=== PATIENT | male | born 1950 | race Caucasian/White ===

== ENCOUNTER → 2023-04-02 13:05 | Outpatient (BNVA) | payer MEDICARE, SELFPAY | PROVIDERS: Visit Provider Physician Assistant | DX: M48.061 Spinal stenosis, lumbar region without neurogenic claudication (principal) | CPT/HCPCS: 99202 ==

== ENCOUNTER 2023-05-27 05:56 | Day surgery (SDC) | payer MEDICARE, SELFPAY ==
[2023-05-14 12:13] VITALS: BP 132/77; PULSE 52; RESP 16; O2SAT 97; BMI 28.2
--- NOTE | 2023-05-14 12:40 | HO.ANESPROP2 ---
Documented by User: Katie Ribeiro NP 05/26/23 11:54 HPI - Anesthesia Eval Consult details Narrative: 72yo M for Right L5-S1 Micro Lumbar discectomy, 05/27/23 No recent illness NO CP/SOB with yard work CAD w/ ME/stent in 2001. Routine cardiac f/u since. Last seen 09/2022. Stable, high METS. PMFSH Active Problems Active Problems: All Active Problems (Updated 05/14/23 @ 12:07 by Fide Longo RN) Lumbar stenosis (Acute) Past Medical History Medical History (Updated 05/14/23 @ 12:07 by Fide Longo RN) Amputated finger Arthritis Benign cardiac murmur Coronary arteriosclerosis Degenerative disorder of eye Eczema Hyperlipidemia Numbness On beta rob at home Personal history of other (healed) physical injury and trauma Family History Family history of problems with anesthesia: No Surgical History Surgical History (Updated 05/14/23 @ 12:37 by Fide Longo RN) H/O colonoscopy History of vasectomy Hx of heart artery stent Hx of inguinal hernia repair S/P arthroscopic surgery of left knee History of Problems with Anesthesia: No Social History Social History Are you a primary home care physical therapist to a significant other at home: No Do you presently have visiting nurse or other home services: No Patient Tobacco Use Status: Never used Tobacco Use of substances other than those prescribed or required for medical reasons: No Have you been hit, kicked, punched, or otherwise hurt by someone within the past year? If so, by whom?: No Are you DNR?: No Advance Directives: No Advance Directives Information Provided: Yes Advance Directives on File: No Recently lost weight without trying: No Nutrition Risks: No Nutritional Risk Poor oral hygiene: Yes (crowns upper and lower) Meds Allergies Allergy/AdvReac Type Severity Reaction Status Date / Time No Known Allergies Allergy Verified 05/13/23 10:26 Home Medications Medication Instructions Recorded Confirmed Last Taken Type aspirin 81 mg tablet,delayed 81 mg PO DAILY 05/14/23 05/14/23 05/27/23 History release atorvastatin 80 mg tablet 80 mg PO BEDTIME 05/14/23 05/14/23 05/19/23 History celecoxib 200 mg capsule 200 mg PO DAILY 05/14/23 05/14/23 05/19/23 History metoprolol tartrate 50 mg tablet 50 mg PO BID 05/14/23 05/14/23 05/27/23 History omega-3 fatty acids 500 mg capsule 1,000 mg PO DAILY 05/14/23 05/14/23 05/19/23 History ramipril 2.5 mg capsule 2.5 mg PO DAILY 05/14/23 05/14/23 05/26/23 History Exam Exam Date and Time: May 14, 2023 1240 Height,Weight and Vital Signs: Height 5 ft 6 in Weight 79.379 kg Last Vital Signs Pulse 52 05/14/23 12:13 Resp 16 05/14/23 12:13 BP 132/77 05/14/23 12:13 Pulse Ox 97 05/14/23 12:13 O2 Del Method Room Air 05/14/23 12:13 Pertinent Lab Results Pertinent Lab Results: Lab Results 05/14/23 05/14/23 Range/Units 13:01 13:01 WBC 6.3 (4.8-10.8) X10*3/uL RBC 4.95 (4.60-5.80) X10*6/uL Hgb 14.9 (14.0-18.0) g/dl Hct 44.1 (42.0-52.0) % MCV 89.1 (80.0-98.0) fL MCH 30.1 (27.0-33.0) pg MCHC 33.8 (31.0-36.0) g/dl RDW 12.8 (11.0-16.0) % Plt Count 186 (160-400) X10*3/uL MPV 10.3 (9.4-12.4) fL Absolute Nucleated RBC 0.000 (0.0-0.012) X10*3/uL Nucleated RBC % (auto) 0.0 (0.0-0.2) /100WBC Sodium 138 (135-145) mmol/L Potassium 4.3 (3.3-5.1) mmol/L Chloride 105 (96-108) mmol/L Carbon Dioxide 24 (22-29) mmol/L Anion Gap 13 (12-20) BUN 20 H (9-16) mg/dL Creatinine 0.89 (0.5-1.4) mg/dL Estim Creat Clear Calc 72.1 Estimated GFR > 60 Random Glucose 96 (60-115) mg/dL Calcium 9.0 (8.4-10.2) mg/dL Narrative Narrative: ECHO 03/2023 LV nml size and function. EF 55-60%. Mild asymmetrical basal-septal LVH LA mildly dilated Mild MR Minimal AV calcification. Mild AR. No .Right and left coronary cusps demonstrate reduced mobility. EKG 09/2022 SB @ 57 ? LAE Airway Mallampati Class: I TM Dist: >3cm Neck ROM: Full Loose/Missing/Broken Teeth: Yes (Right upper molar broken, Capped molars) Heart: RRR Lungs: CTAB Assessment and Plan Assessment Anesthesia Assessment: Anesthesia Plan Discussed and PAT Visit Final Anesthetic Review Family History of Problems with Anesthesia: No History of Problems with Anesthesia: No Documented by User: Angel French MD 05/27/23 07:18 [facility] Past Medical History Medical History (Updated 05/14/23 @ 12:07 by Fide Longo RN) Amputated finger Arthritis Benign cardiac murmur Coronary arteriosclerosis Degenerative disorder of eye Eczema Hyperlipidemia Numbness On beta rob at home Personal history of other (healed) physical injury and trauma Surgical History Surgical History (Updated 05/14/23 @ 12:37 by Fide Longo RN) H/O colonoscopy History of vasectomy Hx of heart artery stent Hx of inguinal hernia repair S/P arthroscopic surgery of left knee Social History Social History Are you a primary home care physical therapist to a significant other at home: No Do you presently have visiting nurse or other home services: No Patient Tobacco Use Status: Never used Tobacco Use of substances other than those prescribed or required for medical reasons: No Have you been hit, kicked, punched, or otherwise hurt by someone within the past year? If so, by whom?: No Are you DNR?: No Advance Directives: No Advance Directives Information Provided: Yes Advance Directives on File: No Recently lost weight without trying: No Nutrition Risks: No Nutritional Risk Poor oral hygiene: Yes (crowns upper and lower) Meds Allergies Allergy/AdvReac Type Severity Reaction Status Date / Time No Known Allergies Allergy Verified 05/13/23 10:26 Home Medications Medication Instructions Recorded Confirmed Last Taken Type aspirin 81 mg tablet,delayed 81 mg PO DAILY 05/14/23 05/14/23 05/27/23 History release atorvastatin 80 mg tablet 80 mg PO BEDTIME 05/14/23 05/14/23 05/19/23 History celecoxib 200 mg capsule 200 mg PO DAILY 05/14/23 05/14/23 05/19/23 History metoprolol tartrate 50 mg tablet 50 mg PO BID 05/14/23 05/14/23 05/27/23 History omega-3 fatty acids 500 mg capsule 1,000 mg PO DAILY 05/14/23 05/14/23 05/19/23 History ramipril 2.5 mg capsule 2.5 mg PO DAILY 05/14/23 05/14/23 05/26/23 History Assessment and Plan Final Anesthetic Review NPO: Yes ASA Class: II Final Preanesthetic Review: No Changes in Pt Med Stat, Meds/Allgs Chart Reviewed, Consent Obtained/Reviewed and Anes Risks/Benef Reviewed Patient Risk: Intermediate Procedure Risk: Intermediate Anesthetic Plan Anesthetic Plan: GA and Agree w/ Assess. and Plan Disposition: Standard PACU
[2023-05-14 13:59] LABS: Hematocrit 44.1 % (42.0-52.0); Hemoglobin 14.9 g/dl (14.0-18.0); Mean Corpuscular HGB Conc 33.8 g/dl (31.0-36.0); Mean Corpuscular Hemoglobin 30.1 pg (27.0-33.0); Mean Corpuscular Volume 89.1 fL (80.0-98.0); Mean Platelet Volume 10.3 fL (9.4-12.4); Platelet Count 186 X10*3/uL (160-400); Red Blood Count 4.95 X10*6/uL (4.60-5.80); Red Cell Distribution Width 12.8 % (11.0-16.0); White Blood Count 6.3 X10*3/uL (4.8-10.8)
[2023-05-14 14:50] LABS: Anion Gap 13 (12-20); Blood Urea Nitrogen 20 mg/dL (9-16); Carbon Dioxide 24 mmol/L (22-29); Chloride 105 mmol/L (96-108); Creatinine Clr Calc Pharmacy 72.1; Estimated Glomerular Filt Rate > 60; Glucose Random 96 mg/dL (60-115); Potassium 4.3 mmol/L (3.3-5.1); Sodium 138 mmol/L (135-145)
[2023-05-27] VITALS (13 sets, daily range): BP systolic 104–127; BP diastolic 58–72; PULSE 53–71; RESP 16–20; TEMP 36.4–36.7; O2SAT 92–99; BMI 28.2
--- NOTE | ~2023-05-27 | FL_ITS ---
EXAMINATION: XR FLUOROSCOPY WITH IMAGES CLINICAL INFORMATION: L5-S1 microlumbar discectomy. COMPARISON: None available. TECHNIQUE: Fluoroscopy Supervised By: Dr. Tien Mcguire. Fluoroscopy Time: 0.0 minutes (less than 10 seconds). Cumulative Dose: 3.34 mGy. DAP: 0.567 Gycm2. Images: 1. FINDINGS: There is a single lateral image of lumbar spine with posterior probe at the L5-S1 disc level. No anterolisthesis L4-L5 is noted. Rest of the alignment is normal. No visible fracture, lytic or sclerotic process seen. FL/FL guidance in OR IMPRESSION: Fluoroscopy guidance was provided to referring physician for L5-S1 microlumbar discectomy.
[2023-05-27] MEDS: Lactated Ringers 1,000 ML 100 ML IVCONT (06:36)
[2023-05-27] MEDS: Gabapentin 300 MG CAPSULE PO (06:43)
[2023-05-27] MEDS: methocarbamoL 750 MG TABLET PO (06:43)
--- NOTE | 2023-05-27 07:08 | MHC.SHP ---
Pre-Procedural Eval Section A Date of Service: 05/27/23 Section B Chief Complaint: Spinal stenosis, lumbar region without neurogenic Allergies: Allergies Allergy/AdvReac Type Severity Reaction Status Date / Time No Known Allergies Allergy Verified 05/13/23 10:26 Review of Systems Sugical H&P ROS: Negative: Constitution, Cardiovascular, Respiratory, Neurological, Psychiatric, Hem-Onc, Allergic/Immunologic, Gastrointestinal, Genitourinary, Musculoskeletal, Integumentary, Endocrine and Eyes/Ears/Nose/Throat Exam Surgical H&P Exam: Not Evaluated: HEENT, Not Evaluated: Heart, Not Evaluated: Lungs, Not Evaluated: Extremities, Not Evaluated: Abdomen, Not Evaluated: Skin and Not Evaluated: Neurological Plan I have reviewed the history and physical and performed a pertinent physical examination on my patient. No changes have occurred unless specified. Plan remains to do?right L5-S1 microdiskectomy Time Spent With Patient Time: Total time managing care of this patient today _10__ minutes.
--- NOTE | 2023-05-27 07:10 | PC.NURSE ---
small monica of skin tag during shave/prep noted, Dr. Mcguire notified.
--- NOTE | 2023-05-27 08:54 | PM.DS ---
DS: Providers Provider Date of Service: 05/27/23 Primary care physician: Radha So MD DS: Diagnosis Discharge Diagnosis (1) Lumbar stenosis: Status: Acute DS: Summary Time Spent with Patient Time attestation: Total time managing care of this patient today _30___ minutes. Discharge coordination time: Less than 30 minutes Quality: Safe Use of Opioids Does Pt have an Active Cancer Diagnosis on the Problem List?: No Quality: Stroke Does the patient have a stroke diagnosis?: No Physical Exam Vital Signs: Vital Signs: Last Vital Signs Temp 97.5 F 05/27/23 06:16 Pulse 63 05/27/23 06:16 Resp 18 05/27/23 06:16 BP 127/70 05/27/23 06:16 Pulse Ox 97 05/27/23 06:16 O2 Del Method Room Air 05/27/23 06:16 BMI result Body Mass Index 28.2 Discharge Plan Discharge Patient Disposition: Home, Self-Care Referrals: Radha So MD [Primary Care Provider] - 1 Week Discharge Medications: New oxycodone 5 mg tablet 5 mg PO Q6H PRN (Reason: severe pain (scale score 7-10)) Qty: 20 0RF Rx Instructions: Partial Fill upon patient request. Held celecoxib 200 mg capsule 200 mg PO DAILY Hold Instructions: Resume on 06/01/23. aspirin 81 mg Tablet,Delayed Release (Dr/Ec) 81 mg PO DAILY Hold Instructions: Resume on 06/01/23. No Action atorvastatin 80 mg tablet 80 mg PO BEDTIME ramipril 2.5 mg capsule 2.5 mg PO DAILY metoprolol tartrate 50 mg tablet 50 mg PO BID Fish Oil 500 mg Capsule 1,000 mg PO DAILY Discharge Orders: Discharge Order (Routine); Ordered 05/27/23 Ordered By: Kenrick Zhang Diet: Advance to usual diet Activity on Discharge: As tolerated Activity Restrictions/Additional Instructions: AFTER YOUR SPINAL SURGERY WE ASK YOU TO OBSERVE THE FOLLOWING RESTRICTIONS/GUIDELINES: ACTIVITY: IT IS NORMAL TO FEEL SOME DISCOMFORT YOU INCREASE YOUR ACTIVITY, BUT THAT WILL IMPROVE WITH TIME. WE ASK YOU AVOID HEAVY LIFTING OR ACITIVITIES THAT CAUSE PAIN. A GENERAL RULE, 8LBS IS A SAFE LIMIT FOR LIFTING RIGHT AFTER SURGERY. WALK MUCH YOU FEEL COMFORTABLE BUT NOT TO EXHAUSTION. YOU WILL FEEL EXTRA TIRED THE FIRST FEW DAYS AFTER SURGERY. STAY WELL HYDRATED. IT IS OK TO WALK UP AND DOWN STAIRS YOU MAY RETURN TO DRIVING WHEN YOU ARE OFF NARCOTICS (SUCH VICODIN, OXYCODONE, DILAUDID, ETC), AND YOU ARE BACK TO NORMAL FUNCTIONAL CAPACITY. IF YOU HAVE ANY CONCERNS PLEASE CHECK WITH OFFICE BEFORE DRIVING. RETURN TO WORK IS SPECIFIC TO EACH PATIENT AND EACH SURGERY, SO PLEASE SPEAK WITH YOUR DOCTOR/PA AT FIRST FOLLOW UP. PLEASE BRING PAPERWORK SUCH FMLA AT THAT TIME IF YOU NEED IT FILLED OUT. MEDICATIONS: WE WILL GIVE YOU A SHORT SUPPLY OF NARCOTICS AFTER SURGERY (USUALLY ONE WEEKS WORTH). IF YOU NEED MORE PLEASE CALL THE OFFICE BUT DO NOT USE MORE THAN PRESCRIBED. YOU WILL NEED TO GIVE OUR OFFICE 48 HOURS NOTICE IF YOU NEED NARCOTICS REFILLED AND WE DO NOT FILL NARCOTICS ON WEEKENDS OR EVENINGS. IF YOU ARE ON A NARCOTIC, IT IS A GOOD IDEA TO TAKE A STOOL SOFTENER SUCH COLACE OR SENNA TO AVOID CONSTIPATION IF YOU TAKE BLOOD THINNER SUCH ASPIRIN, PLAVIX, COUMADIN, EFFIENT, ELIQUIS ETC FOR CONDITIONS SUCH AFIB, DVT, PULMONARY EMBOLUS, CORONARY DISEASE, STENTS ETC PLEASE SPEAK WITH YOUR SURGEON ABOUT SPECIFIC DETAILS TO WHEN YOU CAN RESUME THESE MEDICATIONS. YOU CAN RESUME NSAIDS ON POST OP DAY 1 (EG: MOTRIN, NAPROXEN, ETC). FOLLOW UP: PLEASE CALL THE OFFICE, , AFTER SURGERY TO ARRANGE A 3 WEEK FOLLOW UP FOR WOUND CHECK. WOUND CARE: YOU MAY REMOVE YOUR DRESSING ON THE FIRST DAY AFTER SURGERY. YOU MAY LEAVE OPEN TO AIR. PLEASE DO NOT REMOVE THE STERI STRIPS UNDERNEATH. THEY WILL FALL OFF ON THEIR OWN IN ONE WEEK. IT IS NORMAL FOR THE WOUND TO OOZE OR BE BLOODY FOR A FEW DAYS AFTER SURGERY. IF THIS HAPPENS JUST PLACE NEW DRESSING OVER IT TO AVOID STAINING CLOTHES. YOU MAY SHOWER ON POST OP DAY # 1 WE ASK THAT YOU DO NOT LET THE WATER SOAK THE WOUND. IF IT DOES GET WET, JUST TOWEL DRY LIGHTLY. PLEASE DO NOT SCRUB YOUR INCISION OR PLACE ANY TYPE OF CHEMICAL/OINTMENT ON THE WOUND. NO TUB BATHS, POOLS OR JACUZZIS FOR ONE MONTH. IF YOU HAVE ANY LEAKING OR REDNESS FROM YOUR WOUND, OR FEVERS, PLEASE CALL OFFICE
--- NOTE | 2023-05-27 09:27 | W.PM.OPN ---
Operative Note Operative Note Date of Service: 05/27/23 Narrative: Preoperative diagnosis: right [id number] radiculopathy due to disc herniation Postoperative diagnosis: Same Procedure: L5-S1 lumbar microdiskectomy with microscope Surgeon: Tien Mcguire MD, PhD Archery Instructor: MARK Alvares this 73-year-old male who suffering from a right S1 radiculopathy. MRI shows a disc herniation compressing the right S1 nerve root. In addition there is an L4-5 spondylolisthesis. clinically, he suffered from an S1 radiculopathy and therefore he was offered a lumbar microdiskectomy to decompress the nerve root. The procedure complications were explained. The patient was consented. The patient was brought to the operating room and endotracheally intubated. The patient was turned in a prone position on the Markus frame. Prepping and draping was done followed by time-out. A mid lumbar incision was made followed by release of the paravertebral muscles on the right side to expose the L5-S1 interspace. An intraoperative x-rays obtained to confirm the correct level. The microscope was brought in. A right L5 laminotomy was done followed by opening of the flavum ligament. The S1 nerve root was identified and retracted medially to expose the L5-S1 disc space. I could palpate a disc herniation medial from the S1 nerve root, which I carefully removed with a pituitary. This resulted in an excellent decompression of the S1 nerve root. Hemostasis was done. The microscope was removed. Marcaine was injected intramuscularly.The incision was closed in two layers. Steri-Strips used to approximate seizure. An op-site were taken there was used to cover the incision. All sponge and needle counts were correct. Patient was extubated and transported in stable condition to recovery room. this procedure was done with the aid of a physician food trades assistants who performed the closure of the incision. Anesthesia: General Blood loss: 10 mL Complications: None Specimen: None Disposition: Discharge home
== END 2023-05-27 12:40 | disposition home or self-care (01) ==
PROVIDERS: Nurse Practitioner; PCP Internal Medicine; Visit Provider Neurological Surgery
PROC: (CPT 63030; principal; 2023-05-27 07:30)
DX: M48.061 Spinal stenosis, lumbar region without neurogenic claudication (principal); M51.16 Intervertebral disc disorders with radiculopathy, lumbar region; M54.50 Low back pain, unspecified; I25.10 Atherosclerotic heart disease of native coronary artery without angina pectoris; Z95.5 Presence of coronary angioplasty implant and graft; Z79.82 Long term (current) use of aspirin; Z79.899 Other long term (current) drug therapy
CPT/HCPCS: 63030; 36415; 80048; 85027; J0131; J0690; J1100; J1170; J1885; J2405; J3010

== ENCOUNTER → 2023-05-27 05:56 | Outpatient (BNV) | payer MEDICARE, SELFPAY | PROVIDERS: PCP Internal Medicine; Visit Provider Physician Assistant | DX: M54.16 Radiculopathy, lumbar region (principal); M51.26 Other intervertebral disc displacement, lumbar region | CPT/HCPCS: 63030 ==

== ENCOUNTER 2023-06-18 14:37 | Outpatient (AMB) | payer MEDICARE, SELFPAY ==
--- NOTE | 2023-06-18 14:55 | HO.SPINEOV ---
Intake Intake Visit Reasons: post op visit Intake Note: Mr. Pa is here today for his 1st post-op visit. Fibre Optics Jointer Required: No Allergies No Known Allergies Allergy (Verified 05/13/23 10:26) Assessment & Plan Assessment & Plan (1) Lumbar stenosis: Code(s): M48.061 - Spinal stenosis, lumbar region without neurogenic claudication Plan The patient is 73 year old male who comes in for his 1st postoperative visit after a Right L5-S1 lumbar microdiskectomy. He states that his symptoms have greatly improved compared to preoperatively. He reports that he is able to walk up to 2 miles after slowly increasing his increments of walking by 1/4 mile per day since surgery. He also reports that he is able to stand on his toes now in full plantar flexion which he was unable to do preoperatively. He can perform all of his ADLs, and navigate around his home without any pain. He states he did not use any was oxycodone postoperatively and he is he is in no pain now. On exam the patient is able to ambulate well, his sensation is grossly intact, in the incision site is clean, dry, and without erythema, edema or purulence. Overall his incision site is well healing. The patient will be seen back in the office in 6 weeks for his final postoperative visit. If he continues to do as well as he is now he will not need to be seen any further and may be discharged as a patient. Total amount of time spent in this visit was 20 minutes in discussion of symptoms, surgical procedure XR review, and subsequent plan of care Kenrick Mcguire MD,PhD [facility] Coding Level of Care Code Est Pt Level 3 (23160) Diagnoses Lumbar stenosis M48.061
== END 2023-06-18 15:18 | disposition home or self-care (01) ==
PROVIDERS: Visit Provider Physician Assistant
DX: M48.061 Spinal stenosis, lumbar region without neurogenic claudication (principal)
CPT/HCPCS: 99024

== ENCOUNTER → 2023-06-18 14:37 | Outpatient (BNVA) | payer MEDICARE, SELFPAY | PROVIDERS: Visit Provider Physician Assistant ==

== ENCOUNTER 2023-07-30 12:48 | Outpatient (AMB) | payer MEDICARE, SELFPAY ==
--- NOTE | 2023-07-30 12:59 | MHC.OFFVIS ---
Intake Intake Visit Reasons: 2nd post op Intake Note: pt here today for 2nd post op Foundry Technician Required: No Allergies No Known Allergies Allergy (Verified 05/13/23 10:26) COUNT INCLUDES THE [facility] Medical History (Updated 05/14/23 @ 12:07 by Fide Longo RN) On beta rob at home Personal history of other (healed) physical injury and trauma Arthritis Numbness Benign cardiac murmur Eczema Coronary arteriosclerosis Amputated finger Degenerative disorder of eye Hyperlipidemia Surgical History (Updated 07/30/23 @ 13:14 by MARK Alvares) H/O colonoscopy Hx of heart artery stent Hx of inguinal hernia repair S/P arthroscopic surgery of left knee History of vasectomy Social History Are you a primary home care chaplain to a significant other at home: No Do you presently have visiting nurse or other home services: No Patient Tobacco Use Status: Never used Tobacco Assessment & Plan Assessment & Plan (1) Status post lumbar spine surgery for decompression of spinal cord: Code(s): Z98.890 - Other specified postprocedural states Plan Procedure: Right L5-S1 lumbar microdiskectomy Wai is a 73 year old male who comes in for his 2nd postoperative visit. He states that his symptoms have continued to improve compared to pre-operatively. He states that he has returned to normal activity, and has even begun trail walking and gardening. He states this is the 1st time in a very long time that the instability from trial walking is not causing him any issues with his feet. 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 Wai full strength 5/5 in his upper and lower extremities. He still reports some numbness in his left leg which he states continues to slowly feel as though it is getting better. Mobility is full and symmetric. Gait is normal. He is able to rise from a seated position without difficulty. Wai continues to do well, and does not need further follow-up at this time. He is advised to reach out to the office if he needs this for any new or worsening issues in the future. He will be discharged as a patient. Kenrick Mcguire MD,PhD [facility] Coding Level of Care Code Global (83883) Diagnoses Status post lumbar spine surgery for decompression of spinal cord Z98.890
== END 2023-07-30 13:48 | disposition home or self-care (01) ==
PROVIDERS: Visit Provider Physician Assistant
DX: Z98.890 Other specified postprocedural states (principal)
CPT/HCPCS: 99024

== ENCOUNTER → 2023-07-30 12:48 | Outpatient (BNVA) | payer MEDICARE, SELFPAY | PROVIDERS: Visit Provider Physician Assistant ==